=== PATIENT | female | born 1975 | race African-American/Black ===

== ENCOUNTER 2019-04-02 15:28 | Outpatient (CLI) | payer MEDICAID ==
--- NOTE | 2019-04-02 16:15 | MMO ---
Bilateral MAMMO Bilat Screen DDI. CLINICAL HISTORY: Patient is 43 years old and is seen for screening. The patient has the following family history of breast cancer: maternal aunt. The patient has no personal history of cancer. VIEWS: The views performed were: bilateral craniocaudal and bilateral mediolateral oblique. This study has been interpreted with the assistance of computer-aided detection. MAMMOGRAM FINDINGS: There are scattered fibroglandular densities. There are no suspicious masses, suspicious calcifications, or new areas of architectural distortion. IMPRESSION: THERE IS NO MAMMOGRAPHIC EVIDENCE OF MALIGNANCY. A ROUTINE FOLLOW-UP MAMMOGRAM IN 1 YEAR IS RECOMMENDED. ACR BI-RADS Category 1 - Negative MAMMOGRAPHY NOTE: 1. A negative mammogram report should not delay a biopsy if a dominant of clinically suspicious mass is present. 2. Approximately 10% to 15% of breast cancers are not detected by mammography. 3. Adenosis and dense breasts may obscure an underlying neoplasm. Reported by: VINICIUS JOYA MD Electonically Signed: [id number]
== END 2019-04-02 15:29 | disposition home or self-care (01) ==
LOC: BICMAMMO 15:28 → EDSTATUS 16:00
PROVIDERS: ATTEND Internal Medicine
DX: Z12.31 Encounter for screening mammogram for malignant neoplasm of breast (principal); Z80.3 Family history of malignant neoplasm of breast
CPT/HCPCS: 77067

== ENCOUNTER 2019-04-26 08:08 | Outpatient (CLI) | payer MEDICAID ==
--- NOTE | 2019-04-26 10:50 | ULT ---
PELVIC ULTRASOUND: Date: 04/26/19 HISTORY: Pelvic pain with some spotting. Patient is right-sided. FINDINGS: Real-time imaging of the pelvis was obtained transabdominally. The uterus measures 5.4 x 7.0 x 10.3 c m in size. There is a vague hypoechoic area in the fundus region, which may represent a small fibroid . The right and left adnexal regions are unremarkable. DOPPLER EVALUATION WITH SPECTRAL ANALYSIS: Normal flow is shown to both ovaries. IMPRESSION: Subtle heterogeneous area within the fundus region of the uterus, potentially a small fibroid in the 1.0 cm range. POS: [facility]
== END 2019-04-26 08:09 | disposition home or self-care (01) ==
LOC: BICULT 08:08
PROVIDERS: ATTEND Psychiatry & Neurology Psychiatry
DX: R10.2 Pelvic and perineal pain (principal); D25.9 Leiomyoma of uterus, unspecified
CPT/HCPCS: 76856; 93976

== ENCOUNTER 2020-04-05 12:59 | Outpatient (CLI) | payer MEDICAID ==
--- NOTE | 2020-04-05 13:53 | MMO ---
Bilateral MAMMO Bilat Screen [facility]. CLINICAL HISTORY: Patient is 44 years old and is seen for screening. The patient has the following family history of breast cancer: maternal aunt. The patient has no personal history of cancer. VIEWS: The views performed were: bilateral craniocaudal and bilateral mediolateral oblique. FILMS COMPARED: The present examination has been compared to a prior imaging study performed at [facility] on 04/02/2019. This study has been interpreted with the assistance of computer-aided detection. MAMMOGRAM FINDINGS: There are scattered fibroglandular densities. There are no suspicious masses, suspicious calcifications, or new areas of architectural distortion. IMPRESSION: THERE IS NO MAMMOGRAPHIC EVIDENCE OF MALIGNANCY. A ROUTINE FOLLOW-UP MAMMOGRAM IN 1 YEAR IS RECOMMENDED. ACR BI-RADS Category 1 - Negative MAMMOGRAPHY NOTE: 1. A negative mammogram report should not delay a biopsy if a dominant of clinically suspicious mass is present. 2. Approximately 10% to 15% of breast cancers are not detected by mammography. 3. Adenosis and dense breasts may obscure an underlying neoplasm. Reported by: LUIS EDUARDO COSME MD Electonically Signed: [id number]
== END 2020-04-05 13:00 | disposition home or self-care (01) ==
LOC: BICMAMMO 12:59
PROVIDERS: ATTEND Internal Medicine
DX: Z12.31 Encounter for screening mammogram for malignant neoplasm of breast (principal); Z80.3 Family history of malignant neoplasm of breast
CPT/HCPCS: 77067

== ENCOUNTER 2020-06-23 09:34 | Outpatient (CLI) | payer MEDICAID ==
--- NOTE | 2020-06-23 11:09 | ULT ---
Exam: Transabdominal and endovaginal pelvic ultrasound HISTORY:Pelvic pain. COMPARISON: None TECHNIQUE: Transabdominal and endovaginal imaging of the pelvis is performed. Ovaries are interrogate d with grayscale, color flow, Doppler imaging and spectral wave form analysis FINDINGS: Uterus: There is a 1.0 x 1.0 x 1.2 cm solid echotexture focus in the anterior lower inner uterine jarrett metrium, favored to be a leiomyoma. Uterus measurin.0 x 5.0 x 9.6 cm. Endometrium: Homogeneous echotexture. Endometrium diameter: 0.4 cm. Nabothian cysts are noted Free fluid: None Right ovary: Normal echotexture Right ovary measurement: 2.7 x 1.7 x 1.6 cm Left ovary: Normal echotexture. Dominant follicle measures 1.1 cm in maximum dimension Left ovary measurements: 2.7 x 1.7 x 1.8 cm Ovarian Doppler: There is vascular flow to the left and right ovary. IMPRESSION: 1. Small anterior uterine leiomyoma
== END 2020-06-23 09:35 | disposition home or self-care (01) ==
LOC: BICULT 09:34
PROVIDERS: ATTEND Nurse Practitioner Women's Health
DX: R10.2 Pelvic and perineal pain (principal); D25.9 Leiomyoma of uterus, unspecified
CPT/HCPCS: 76856

== ENCOUNTER 2020-08-30 12:55 | Outpatient (CLI) | payer OTHER ==
[~2020-08-30 12:55] MED LIST: Iopamidol 370 76% 100 ML VIAL ONE
== END 2020-08-30 12:56 | disposition home or self-care (01) ==
LOC: BICCT 12:55
PROVIDERS: ATTEND Nurse Practitioner Family
DX: R22.1 Localized swelling, mass and lump, neck (principal); K11.8 Other diseases of salivary glands; E07.9 Disorder of thyroid, unspecified
CPT/HCPCS: 70491; Q9967

== ENCOUNTER 2020-09-22 13:27 | Outpatient (CLI) | payer OTHER | END 2020-09-22 13:28 | disposition home or self-care (01) | LOC: BICULT 13:27 | PROVIDERS: ATTEND Nurse Practitioner Family | DX: K11.8 Other diseases of salivary glands (principal); E07.89 Other specified disorders of thyroid | CPT/HCPCS: 76536 ==

== ENCOUNTER 2020-11-24 07:46 | Outpatient (CLI) | payer MEDICAID ==
[2020-11-24 09:45] LABS: BHCG - Serum Negative (NEGATIVE)
[2020-11-24 09:46] LABS: Pregs Control Background? CLEAR/WHITE (CLR/WHITE); Pregs Control Bar Appear? YES (CONTROL BAR)
[2020-11-24 15:02] LABS: SARS-CoV-2 PCR by NAA Not Detected (NotDetected)
== END 2020-11-24 07:47 | disposition home or self-care (01) ==
LOC: LABBT 07:46
PROVIDERS: ATTEND Otolaryngology Plastic Surgery within the Head & Neck
DX: Z01.812 Encounter for preprocedural laboratory examination (principal); K11.8 Other diseases of salivary glands; Z20.822 Contact with and (suspected) exposure to COVID-19
CPT/HCPCS: 84703; 85014; U0003; U0005

== ENCOUNTER 2020-12-01 07:51 | Outpatient (CLI) | payer MEDICAID ==
[2020-12-01 17:01] LABS: SARS-CoV-2 PCR by NAA Not Detected (NotDetected)
== END 2020-12-01 07:52 | disposition home or self-care (01) ==
LOC: LABBT 07:51
PROVIDERS: ATTEND Otolaryngology Plastic Surgery within the Head & Neck
DX: Z01.812 Encounter for preprocedural laboratory examination (principal); K11.8 Other diseases of salivary glands; Z20.822 Contact with and (suspected) exposure to COVID-19
CPT/HCPCS: U0003; U0005

== ENCOUNTER 2020-12-06 07:13 | Day surgery (SDC) | payer MEDICAID ==
[2020-12-06] MEDS ORDERED: Fentanyl 100 MCG/2 ML VIAL ONE ×3 (08:20→12:43)
[2020-12-06] MEDS ORDERED: Bacitracin Zinc Ointment 30 gm TUBE ONE (08:26)
[2020-12-06] MEDS ORDERED: Lidocaine 1% w/Epinephrine 1:100K 20 ML VIAL ONE (08:26)
[2020-12-06] MEDS ORDERED: Dexamethasone 20 MG/5 ML VIAL ONE (09:02)
[2020-12-06] MEDS ORDERED: PROPOFOL 200 MG/20 ML VIAL ONE (09:02)
[2020-12-06] MEDS ORDERED: Succinylcholine 200 MG/10 ml SYRINGE FS ONE (09:02)
[2020-12-06] MEDS ORDERED: Ondansetron PF 4 MG/2 ML Vial ONE (09:02)
[2020-12-06] MEDS ORDERED: Lidocaine 1% PF 5 ML VIAL ONE (09:02)
[2020-12-06] MEDS ORDERED: ePHEDrine Sulfate 50 MG/10 ML VIAL ONE (09:02)
[2020-12-06] MEDS ORDERED: Dexamethasone 4 mg/ml Vial ONE ×2 (09:27→09:29)
[2020-12-06] MEDS ORDERED: Promethazine HCl 25 MG/ML VIAL ONE (12:01)
== END 2020-12-06 15:30 | disposition home or self-care (01) ==
LOC: SDC 07:13
PROVIDERS: ATTEND Otolaryngology Plastic Surgery within the Head & Neck
PROC: 0CTB0ZZ Resection of Right Parotid Duct, Open Approach (ICD-10-PCS; principal; 2020-12-06)
DX: D11.0 Benign neoplasm of parotid gland (principal); Z79.899 Other long term (current) drug therapy
CPT/HCPCS: 88307; J1100; J2405; J2550; J2704; J3010

== ENCOUNTER 2021-08-06 06:54 | Outpatient (CLI) | payer OTHER | END 2021-08-06 06:55 | disposition home or self-care (01) | LOC: BICULT 06:54 | PROVIDERS: ATTEND Urology | DX: N28.1 Cyst of kidney, acquired (principal); R35.0 Frequency of micturition; R10.12 Left upper quadrant pain; R39.14 Feeling of incomplete bladder emptying | CPT/HCPCS: 76770 ==